=== PATIENT | male | born 1995 | race Hispanic/Latino ===

== ENCOUNTER 2024-02-19 15:22 | Emergency (ER) | payer SELFPAY ==
[~2024-02-19] VITALS: Ht 154.9 cm; Wt 63.0 kg
[2024-02-19] VITALS (8 sets, daily range): BP systolic 112–144; BP diastolic 60–82
[2024-02-19 17:01] LABS: BASO% 0.3 % (0-3); HEMATOCRIT 44.9 % (39.0-50.0); HEMOGLOBIN 14.8 g/dl (14.0-18.0); IMMATURE GRANULOCYTES 0.2 % (0.0-5.0); LYMPH% 27.3 % (15-41); MEAN CELL VOLUME 93.7 fL CALC (80.0-100.0); MEAN CORPUSCULAR HGB 30.9 pG CALC (26.0-32.0); MONO% 5.2 % (2-13); NEUT# 7.94 thou/uL (1.82-7.42); RED BLOOD COUNT 4.79 mill/uL (4.70-6.10); RED CELL DISTRI WIDTH 12.7 % (11.5-15.5)
[2024-02-19 17:12] LABS: BILIRUBIN, TOTAL 0.4 mg/dL (0.2-1.3); CREATININE 1.1 mg/dL (0.7-1.3); POTASSIUM 4.3 mmol/l (3.5-5.1); TOTAL PROTEIN 8.4 g/dL (6.3-8.2)
[2024-02-19 17:13] LABS: URINE BILIRUBIN - DIPSTICK Negative (NEGATIVE); URINE BLOOD DIPSTICK Negative (NEGATIVE); URINE GLUCOSE - DIPSTICK Negative (NEGATIVE); URINE KETONE Negative (NEGATIVE); URINE LEUK ESTERASE Negative (NEGATIVE); URINE NITRITE - DIPSTICK Negative (Negative); URINE PH 6.5 (4.5-8.0); URINE PROTEIN - DIPSTICK Negative (NEG-TRACE); URINE SPECIFIC GRAVITY 1.025; URINE UROBILINOGEN - DIPSTICK 0.2 E.U./dL (0.2)
[2024-02-19 17:14] LABS: URINE COLOR Yellow
[2024-02-19] MEDS ORDERED: SODIUM CHLORIDE 0.9% 1,000 ML IV ONE ×2 (17:35)
[2024-02-19 17:42] LABS: TSH, 3RD GENERATION 1.02 uIU/mL (0.47 - 4.68)
[2024-02-19] MEDS ORDERED: VITAMIN D50000 UNI1 PO (19:20)
== END 2024-02-19 19:30 | disposition home or self-care (01) | DRG 558 ==
LOC: ED 15:22
PROVIDERS: Nurse Practitioner Family
DX: M62.82 Rhabdomyolysis (principal); E55.9 Vitamin D deficiency, unspecified